=== PATIENT | female | born 1985 | race African-American/Black ===

== ENCOUNTER 2017-07-03 13:00 | Inpatient (IN) | payer OTHER ==
--- NOTE | ~2017-07-03 | PN ---
Unit #: [id number] #: [id number] Patient: FRANCISCA VERDUGO [id number] [facility] [address] [place] [address] [id number] I MR#: [id number] NAME: FRANCISCA VERDUGO ROOM: [facility] Age: 31 Sex: F Admission Date: 07/03/2017 : 1985 Attending Physician: Russell Mike M.D. Admitting Physician: Rsusell Mike M.D. [facility] PROGRESS NOTES DATE 07/05/2017 DISCUSSION Ms. Verdugo received a brief period of seclusion and intramuscular medications last night after she became very angry that her medicines were not available immediately upon request. This morning she is somewhat sheepish about this but denies any need for further treatment. She continues to have active detox symptoms and is beginning to ask about discharge. However, she has not yet engaged in significant discharge planning. ASSESSMENT Opiate dependence withdrawal, uncomplicated. PLAN Continue current treatment plan. Dictated by... Russell Mike M.D. /carlota TD: 07/09/2017 23:17 JOB #: [id number] [facility] PROGRESS NOTES Page 1 of 1 X Russell Mike MD PROGRESS NOTE
--- NOTE | ~2017-07-03 | HP ---
Unit #: [id number] #: [id number] Patient: FRANCISCA WILSON [id number] [place] [address] [id number] I MR#: [id number] NAME: FRANCISCA WILSON. ROOM: [facility] Age: 31 Sex: F Admission Date: 07/03/2017 : 1985 Attending Physician: Russell Mike M.D. Admitting Physician: Russell Mike M.D. Primary Care Physician: Richa Oliver [facility] HISTORY AND PHYSICAL HISTORY OF PRESENT ILLNESS Patient is a 31-year-old female admitted to [address] [place] [address] on 07/03/2017 to withdrawal from heroin. PAST MEDICAL HISTORY Heroin abuse. PAST SURGICAL HISTORY 1. Salpingectomy. 2. Dental. 3. D & C. 4. Appendectomy. SOCIAL HISTORY She is unemployed. She lives with her boyfriend. Smokes 1/2 pack of cigarettes per day and uses heroin on a daily basis. FAMILY MEDICAL HISTORY Noncontributory. ALLERGIES penicillin, ibuprofen and latex. CURRENT MEDICATIONS The patient is not on any home medications. REVIEW OF SYSTEMS CONSTITUTIONAL: No fever or chills. HEENT: Denies any sore throat, ear pain or runny nose. CARDIOVASCULAR: Denies chest pain, irregular heart rhythm or palpitations. CHEST: Denies shortness of breath or cough. No hemoptysis. GASTROINTESTINAL: Denies nausea, vomiting, diarrhea or chronic constipation. ENDOCRINE: Denies history of increased thirst or urination. No recent significant weight loss or gain. GENITOURINARY: Denies dysuria, frequency, or hematuria. SKIN: Denies any rashes. HEMATOLOGIC: Denies history of increased bleeding or bruising. MUSCULOSKELETAL: Denies any hot, swollen joints. No generalized muscle pain. NEUROLOGIC: Denies problems with vision or speech. No frequent, severe headaches. No numbness, tingling or weakness in any extremities. Denies loss of bladder or bowel control. Unit #: [id number] #: [id number] Patient: FRANCISCA WILSON PHYSICAL EXAM GENERAL: She is awake, alert and oriented in no acute distress. VITAL SIGNS: Temperature 98.5, heart rate 69, respiration 18, blood pressure 140/89. HEIGHT: 5 foot 6. WEIGHT: Unknown. SKIN: Warm and dry without rash or lesion. HEENT: Normocephalic. TMs not viewed. Oral and nasal passages clear. Conjunctivae clear. PERRLA. EOMs intact. NECK: Supple without lymphadenopathy or thyromegaly. HEART: Regular rate and rhythm without murmur. LUNGS: Clear. ABDOMEN: Soft, nontender. : Not done. EXTREMITIES: No evidence of cyanosis, clubbing or edema. Moves all without focal deficit. NEUROLOGICAL: Grossly within normal limits. Cranial Nerves: II: Visual crawford are intact. III, IV AND : Extraocular movements are intact. Pupils are equal, round and reactive to light. V: Facial sensation is grossly normal. VII: Facial movements and expression are normal. VIII: Auditory acuity grossly intact. IX, X: Uvula is midline. Phonation is normal. XI: Patient shrugs shoulders and turns head normally. XII: Tongue protrudes in the midline. Sensory and Motor Function: Sensory and motor sensation is grossly normal. Motor: moves all extremities well. IMPRESSION 1. Psychiatric admission. 2. Heroin abuse. 3. Nicotine dependence. RECOMMENDATIONS Psychiatric per psychiatrist. MEDICAL: No contraindication to participate in facility activities. MEDICAL PROGNOSIS Good. MEDICAL CONDITION Stable. Dictated by... Ministerio Hurst/barry TD: 07/05/2017 02:27 JOB #: [id number] Unit #: [id number] #: [id number] Patient: FRANCISCA WILSON HISTORY AND PHYSICAL Page 1 of 1 X PHILIPPE ALVARADO APRN HISTORY AND PHYSICAL
--- NOTE | ~2017-07-03 | DS ---
Unit #: [id number] #: [id number] Patient: FRANCISCA VERDUGO [id number] [place] [address] [id number] I MR#: [id number] NAME: FRANCISCA VERDUGO. ROOM: [facility] Age: 31 Sex: F Admission Date: 07/03/2017 : 1985 Discharge Date: 07/06/2017 Attending Physician: Russell Mike M.D. Primary Care Physician: [facility] DISCHARGE SUMMARY REASON FOR ADMISSION Ms. Verdugo is a 31-year-old woman with a history of opiate dependence and reports a history of bipolar disorder. She came in requesting detox and denying suicidal ideation, intent or plan. DIAGNOSTIC STUDIES LABORATORY DATA: Laboratory studies were within normal limits. Beta HCG was negative. Urine toxicology positive for opiates, marijuana and barbiturates. HOSPITAL COURSE The patient was admitted and placed on the opiate detox protocol. She had one episode of upset requiring brief seclusion and restraint and intramuscular medication, when her medicines were not made immediately available to her and she admitted that she is "irritable." However, she showed no further signs of bipolar disorder and declined initiation of treatment. The following day she was able to once again contract for safety in the outpatient setting. DISCHARGE DIAGNOSES [place] I Opiate dependence, withdrawal and complicated, F1.23. History of bipolar disorder. [place] II Cluster B traits noted. [place] III Opiate withdrawal, resolved. [place] IV [place] V INSTRUCTION TO PATIENT Followup with [facility]. DISCHARGE MEDICATIONS Done. CONDITION AT DISCHARGE Improved. PROGNOSIS Fair to good. DIET AND ACTIVITY Per primary care doctor. Unit #: [id number] #: [id number] Patient: FRANCISCA VERDUGO Dictated by... Russell Mike M.D. H/ts TD: 07/13/2017 07:49 JOB #: [id number] DISCHARGE SUMMARY Page 1 of 1 X Russell Mike MD DISCHARGE SUMMARY
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
[~2017-07-03 13:00] MED LIST: CIPRO PO; DARVOCET-N 1001 TAB PO; ERYTHROCIN STE500 MG PO; FLEXERIL10 MG PO; NAPROSYN250 M1 PO; NAPROXEN PO; ORUDIS75 M1 DOB; PHENERGAN PO; PRENATAL MULITV1 TAB PO; PYRIDIUM PO; VICODIN 5/1 TAB 5/50 PO; ZOFRAN8 MG PO
[2017-07-04 13:26] LABS: BASOPHIL% 0.5 % (0-2.5); EOSINOPHIL# 0.1 X10e3 (0-0.7); EOSINOPHIL% 1.1 % (0.0-7.0); HEMATOCRIT 37.8 % (35.0-45.0); HEMOGLOBIN 12.4 gm/dL (12.0-16.0); LYMPHOCYTE# 1.5 X10e3 (1.0-3.5); MEAN CELL VOLUME 85.8 FL (83-96); MEAN CORPUSCULAR HEMOGLOBIN 28.2 PG (28-34); MEAN CORPUSCULAR HGB CONC 32.8 g/dL (30-36); MEAN PLATELET VOLUME 9.3 FL (6.5-11.5); MONOCYTE# 0.4 X10e3 (0-1.0); MONOCYTE% 6.2 % (3.0-12.0); NEUTROPHIL# 4.8 X10e3 (1.5-7.1); NEUTROPHIL% 70.2 % (40-75); PLATELET COUNT 295 X10e3 (140-420); RED CELL DISTRIBUTION WIDTH 15.5 % (11.0-15.5); WHITE BLOOD COUNT 6.9 X10e3 (4.0-10.5)
[2017-07-04 13:27] LABS: ALBUMIN SERUM 3.5 g/dL (3.5-5.0); BILIRUBIN,TOTAL 0.5 mg/dL (0.2-2.0); BUN/CREATININE RATIO 8.33; CALCIUM SERUM 9.3 mg/dL (8.4-10.2); CREATININE SERUM 0.6 mg/dL (0.6-1.4); GLOM FILT RATE Estimated 142.8 mL/min (>60); POTASSIUM 3.6 mmol/L (3.5-5.1); PROTEIN TOTAL SERUM 7.5 g/dL (6.0-8.3)
[2017-07-04 13:32] LABS: DIFF IND NO
[2017-07-06 13:04] LABS: URINE APPEARANCE TURBID; URINE BLOOD NEG (NEG); URINE COLOR DK YELLOW; URINE GLUCOSE NEG (NEG); URINE KETONE 2+ (NEG); URINE LEUKOCYTE ESTERASE NEG (NEG); URINE NITRATE NEG (NEG); URINE PROTEIN TRACE (NEG); URINE SPECIFIC GRAVITY 1.037 (1.003-1.035)
[2017-07-06 13:14] LABS: URINE BILIRUBIN NEG (NEG)
[2017-07-06 14:03] LABS: AMPHETAMINE NEG (NEG); BARBITURATES POS (NEG); BENZODIAZEPINES NEG (NEG); COCAINE NEG (NEG); MARIJUANA POS (NEG); OPIATES POS (NEG); TRICYCLIC ANTIDEPRESSANTS NEG (NEG); U METHADONE NEG (NEG)
== END 2017-07-06 12:50 | disposition home or self-care (01) | DRG 897 ==
LOC: P2L 16:23
PROVIDERS: Psychiatry & Neurology Psychiatry
DX: F11.23 Opioid dependence with withdrawal (principal); F17.200 Nicotine dependence, unspecified, uncomplicated; Z88.0 Allergy status to penicillin; Z88.6 Allergy status to analgesic agent; Z91.040 Latex allergy status
CPT/HCPCS: 80053; 80307; 81003; 84703; 85025; 86592; 87806; J2550; J3486